=== PATIENT | female | born 1995 | race Caucasian/White ===

== ENCOUNTER 2020-07-22 15:31 | Emergency (ER) | payer OTHER ==
[~2020-07-22 15:31] MED LIST: IBUPROFEN800 MG PO; NORCO 5-325 TA1 EACH PO; ZOFRAN 4 MG TAB4 MG PO
[2020-07-22 17:44] LABS: HEMOGLOBIN 12.7 gm/dl (12.3-15.3); RED BLOOD COUNT 4.4 M/UL (4.00-5.10); WHITE BLOOD COUNT 9.2 K/UL (4.5-11.0)
[2020-07-22 18:06] LABS: BUN/CREATININE RATIO 12 (0-10)
[2020-07-22] MEDS ORDERED: MEDROL DOSEPAK 24 MG PO (18:32)
[2020-07-22] MEDS ORDERED: SUDAFED 60 MG T60 MG PO (18:32)
[2020-07-22] MEDS ORDERED: ZOFRAN4 MG PO (18:32)
[2020-07-22] MEDS ORDERED: DOXYCYCLINE HY100 M2 PO (18:32)
== END 2020-07-22 18:40 | disposition home or self-care (01) ==
LOC: ER1 15:31
PROVIDERS: Physician Assistant Medical
DX: J06.9 Acute upper respiratory infection, unspecified (principal); Z90.89 Acquired absence of other organs; Z20.822 Contact with and (suspected) exposure to COVID-19
CPT/HCPCS: 0240U; 71046; 80053; 81001; 85025; 96374; 99283; J2405